=== PATIENT | female | born 1950 | race African-American/Black ===

== ENCOUNTER → 2018-01-02 | Outpatient (CLI) | payer MEDICARE, OTHER | END | disposition home or self-care (01) | LOC: CT 09:26 | DX: R59.1 Generalized enlarged lymph nodes (principal) | CPT/HCPCS: 71250 ==

== ENCOUNTER → 2019-01-15 | Outpatient (CLI) | payer MEDICARE, OTHER ==
[~2019-01-15] MED LIST: AMLO5TAB10 PO; CEVI30CA5 PO; CHOL500016 PO; CYCL1DRO OP; DICL100G18 TP; GADOBUTROL 7.5 MMOL/7.5 ML VIAL IV ONE; HYDR-2678 PO; HYDR200T71 PO; LEVO88TA4 PO; MULT1TAB6 PO; NAPR-514 PO; OMEG1CAP38 PO
[2019-01-15 08:56] LABS: CREATININE 0.7 mg/dL (0.6-1.0); GFR 100.4
--- NOTE | 2019-01-15 09:05 | RAD ---
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 TECHNIQUE: Noncontrast helical CT scanning of the chest was performed. Without contrast, the sensitivity to detect organ pathology is decreased. PQRS compliance Statement One or more of the following individualized dose reduction techniques were utilized for this study: 1. Automated exposure control 2. Adjustment of the mA and/or kV according to patient size 3. Use of iterative reconstruction technique COMPARISON: January 02, 2018. FINDINGS: No enlarged thoracic lymphadenopathy is evident. No focal aneurysmal dilatation of the thoracic aorta is seen. The heart size is normal and no pericardial effusion is seen. No adrenal mass is evident. No lung nodule or lung mass or lung consolidation is evident. No pleural effusion or pneumothorax is seen. The proximal bronchial tree is patent. There is small nodule of the anterolateral aspect of this right trachea most likely representing mucus. This was not seen previously. No lytic process is seen. IMPRESSION: No lung metastatic disease or acute lung infiltrate. Electronically signed by: Ty Sagastume MD (01/15/2019 9:01 AM) [id number]
--- NOTE | 2019-01-15 12:26 | RAD ---
EXAM: MRI Right lower leg with and without IV contrast. 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 COMPARISON: None. TECHNIQUE: Multiplanar, multisequence MRI of the right lower leg was performed before and after the administration of IV gadolinium contrast. FINDINGS: Subcutaneous soft tissue tissue swelling/edema is seen just inferior to the tibial tuberosity consistent with prior treatment change. No definite new or residual nodular enhancing mass is seen in this region. T1 marrow signal is grossly preserved. No evidence for fracture, bone destruction or AVN. Normal muscle signal and bulk. Exam was tailored for the evaluation of soft tissue mass limiting evaluation for internal derangement of the knee. Within these constraints: Right knee joint osteoarthritis with tricompartmental osteophytes and medial greater than lateral compartment chondromalacia. There is likely a full-thickness radial tear of the posterior horn of the medial meniscus. IMPRESSION: 1. No definite residual or recurrent mass is identified. Trace residual soft tissue edema in the anterior aspect of the lower leg. 2. Right knee joint osteoarthritis with tricompartmental osteophytes and chondromalacia. 3. Full-thickness radial tear posterior horn medial meniscus is suspected. Electronically signed by: Mario Martinez MD (01/15/2019 12:23 PM) [id number]
== END | disposition home or self-care (01) ==
LOC: CT 07:48
PROVIDERS: ATTEND Radiology Radiation Oncology
DX: C40.21 Malignant neoplasm of long bones of right lower limb (principal); S83.241A Other tear of medial meniscus, current injury, right knee, initial encounter; M17.11 Unilateral primary osteoarthritis, right knee; M25.761 Osteophyte, right knee; X58.XXXA Exposure to other specified factors, initial encounter; Y93.89 Activity, other specified; Y92.89 Other specified places as the place of occurrence of the external cause; Y99.8 Other external cause status
CPT/HCPCS: 36415; 71250; 73720; 82565; A9585

== ENCOUNTER → 2020-04-12 | Outpatient (CLI) | payer MEDICARE, OTHER ==
[~2020-04-12] MED LIST changes: +ATOR20TA58 PO; -DICL100G18 TP; +DICL100G54 TP; -GADOBUTROL 7.5 MMOL/7.5 ML VIAL IV ONE
--- NOTE | 2020-04-12 11:25 | RAD ---
CT CHEST WO CONTRAST INDICATION: Malignant fibrous histiocytoma of the right lower extremity. COMPARISON STUDY: 01/15/2019. TECHNIQUE: Unenhanced axial images were obtained through the lungs and upper abdomen. Coronal and sagittal multiplanar reconstructions were also obtained. PQRS compliance statement: One or more of the following individualized dose reduction techniques were utilized for this examination: 1. Automated exposure control 2. Adjustment of the mA and/or kV according to patient size 3. Use of iterative reconstruction technique FINDINGS: Lungs and Airways: No pulmonary mass or consolidation. Normal central airways. Pleura: The pleural spaces are normal. Heart and Mediastinum: The visualized thyroid gland is normal in size and attenuation. No axillary or supraclavicular lymphadenopathy. No mediastinal, hilar or retrocrural lymphadenopathy. Normal cardiac size. No pericardial effusion. Coronary artery atherosclerotic disease. The great vessels of the thorax are normal. Abdomen: The visualized abdominal organs demonstrate no abnormality. Bones and Soft Tissues: Degenerative changes of the spine. No aggressive lytic or blastic osseous lesions.. IMPRESSION: No evidence of metastatic disease in the chest. No pulmonary mass or thoracic lymphadenopathy. Electronically signed by: Charles Wylie MD (04/12/2020 11:23 AM) [id number]
== END | disposition home or self-care (01) ==
LOC: CT 12:33
PROVIDERS: ATTEND Radiology Radiation Oncology
DX: C49.21 Malignant neoplasm of connective and soft tissue of right lower limb, including hip (principal); I25.10 Atherosclerotic heart disease of native coronary artery without angina pectoris
CPT/HCPCS: 71250